=== PATIENT | female | born 1970 | race Caucasian/White ===

== ENCOUNTER → 2023-11-14 14:08 | Outpatient (REF) | payer OTHER, SELFPAY | LOC: WDC 14:08 | PROVIDERS: ATTENDING PHYSICIAN Family Medicine | DX: M85.80 Other specified disorders of bone density and structure, unspecified site (principal); Z12.31 Encounter for screening mammogram for malignant neoplasm of breast | CPT/HCPCS: 77063; 77067; 77080 ==

== ENCOUNTER → 2025-03-27 10:32 | Outpatient (REF) | payer OTHER, SELFPAY | LOC: RAD 10:32 | PROVIDERS: ATTENDING PHYSICIAN Family Medicine | DX: R07.89 Other chest pain (principal) | CPT/HCPCS: 71046 ==

== ENCOUNTER 2025-03-27 12:24 | Emergency (ER) | payer OTHER, SELFPAY ==
[2025-03-27 12:27] VITALS: BP 146/90
--- NOTE | 2025-03-27 13:25 | ED.GENMED ---
History of Present Illness
General
Chief Complaint: Chest Problem
Time Seen by Provider: 03/27/25 13:01
History of Present Illness
History of Present Illness:
55-year-old female with history of hypothyroidism presents to the emergency department for evaluation of chest pressure and shortness of breath that has been ongoing for the past several days. She reports exertional trouble breathing, is normally a
very active individual but feels short of breath whenever she walks even to the end of her driveway. The chest discomfort is not pleuritic but she does note that it involve the thoracic back on occasion. She also notes pain to the left groin that
began this morning and is intermittent. No fevers or chills, no coughing. Was sent for an outpatient chest x-ray this morning that returned negative. No history of coronary disease. Non-smoker. No recent surgeries or exogenous systemic estrogen
use
Past History
Past History
ED Past Medical History: Hypothyroidism
Social History
Tobacco: Non-smoker
Personal:
Review of Systems
Review of Systems
Allergies reviewed?: Yes
All Other Systems: ROS reviewed and negative except as documented in HPI and ROS
Phy Exam
Physical Exam
Physical Exam:
GEN: Well appearing, NAD, WDWN
HEENT: Oral mucosa moist, no scleral icterus
Cardiac: Regular rate and rhythm, no murmurs
Lung: No respiratory distress, no tachypnea, lungs clear to auscultation bilaterally
MSK: No gross deformity or injuries. No palpable inguinal adenopathy or tenderness, no lower extremity edema bilaterally
Skin: Good color, no pallor or jaundice, no rashes
Neuro: AO x3, moves all extremities freely
Psych: Calm, cooperative
Course
Orders/Labs/Results
Orders:
Orders
03/27/25 12:28
EKG [Electrocardiogram (*1)] Urgent
Reason for Study: Shortness of Breath
EKG- Treatment ONCE
03/27/25 13:59
Complete Blood Count/With Diff Urgent
Comprehensive Metabolic Panel Urgent
D-Dimer Urgent
NT-proBNP Urgent
Troponin I Urgent
03/27/25 14:51
COVID-19 Antigen Urgent
Source: Nasal Swab
Abnormal Lab Results
03/27/25
13:59
WBC 4.1 L 10^3/uL
(4.8-10.8)
MCH 31.2 H pg
(27.0-31.0)
Glucose 101 H mg/dl
(70-99)
03/27/25 13:59
03/27/25 13:59
Vital Signs
Initial and Last Documented VS:
Initial Vital Signs
Pulse Resp BP Pulse Ox
80 18 146/90 98
03/27/25 12:27 03/27/25 12:27 03/27/25 12:27 03/27/25 12:27
Last Documented Vital Signs
Pulse Resp BP Pulse Ox
71 22 146/90 100
03/27/25 14:45 03/27/25 14:45 03/27/25 12:27 03/27/25 14:45
MDM/Problems Addressed
MDM/Problems Addressed:
Patient is clinically well with an unremarkable workup. Negative D-dimer negative troponin and reassuring. She does have mild leukopenia which may suggest a viral trigger thus COVID-19 is sent prior to discharge. Given that this is negative will
refer to cardiology for outpatient workup although she does not have strong risk profile for coronary disease
Comment
Comment:
EKG independently interpreted by me shows a normal sinus rhythm at a rate of [address] changes concerning for ischemia
*Pulse Oximetry
SaO2: 98
Oxygen Mode of Delivery: Room air
Patient hypoxic: no
*Critical Care Note
Total Time (30-74mins, 75-104mins- exclusive of procedures): Not Applicable
ED Attending Note
-
Portions of this chart may have been created with voice recognition software.� Occasional wrong word or��sound alike� substitutions may have occurred due to the inherent limitations of voice recognition software.
Discharge Plan
Departure
Patient Disposition: Home (Routine Discharge)
Date of Disposition: 03/27/25
Time of Disposition: 14:42
Patient with high blood pressure during this ER visit?: Yes
Discharge Problem:
Dyspnea on exertion
Instructions: Chest Pain CBC Follow Up
Prescriptions:
No Action
levothyroxine [Synthroid] 100 MCG tablet
100 mcg PO DAILY
calcium carbonate [Calcium 500] 500 MG tablet,chewable
1 tab PO DAILY
ondansetron [Zofran ODT] 8 MG tablet,disintegrating
8 mg PO TID PRN (Reason: nausea/vomiting) Qty: 20 0RF
oxycodone 5 MG tablet
5 mg PO Q4HPRN PRN (Reason: pain) Qty: 10 0RF
psyllium husk [Metamucil Fiber (aspartame)] 1 PACKET powder in packet
1 packet PO DAILY Qty: 14 0RF
Referrals:
Silvino Rivera DO [Family Provider, Family Practice]
Interventions
Interventions:
*Risk Screen - Suicide Last Done: 03/27/25 14:02
*General Assessment Last Done: 03/27/25 14:02
*Neglect/Abuse Screening Last Done: 03/27/25 14:02
*ED- Fall Risk Assessment Last Done: 03/27/25 14:00
*ED COVID-19 Vaccine History Last Done: 03/27/25 14:00
*ED Influenza Vaccine History Last Done: 03/27/25 14:00
*Nursing Disposition Last Done: 03/27/25 14:55
ED- Cardiac Assessment Last Done: 03/27/25 14:01
ED- Pulmonary Assessment Last Done: 03/27/25 14:01
Discharge Date and Time
Discharge Date/Time: 03/27/25 14:55
Print Language: AMHARIC
[2025-03-27 13:59] VITALS: BMI 25.9
[2025-03-27 14:06] LABS: Hematocrit 39.7 % (37.0-47.0); Hemoglobin 13.2 g/dL (12.0-16.0); Mean Corp Hgb Conc. 33.2 g/dL (33.0-37.0); Mean Corpuscular Volume 93.9 fL (81.0-99.0); Nucleated Red Blood Cells % 0 %; Platelet Count 190 10^3/uL (130-400); Red Cell Dist. Width 13.2 % (11.5-14.5)
[2025-03-27 14:18] LABS: D-Dimer 0.49 ug/mlFEU (0.00-0.50)
[2025-03-27 14:20] LABS: ALT (SGPT) 29 U/L (0-35); AST (SGOT) 28 U/L (14-36); Albumin 4.4 g/dl (3.5-5.0); Alkaline Phosphatase 60 U/L (38-126); Blood Urea Nitrogen 13 mg/dl (7-17); Calcium 9.9 mg/dl (8.4-10.2); Carbon Dioxide 26 mmol/L (22-30); Chloride 107 mmol/L (98-107); Estimated Creatinine Clearance 76 ml/min; Glucose 101 mg/dl (70-99); Potassium 4.5 mmol/L (3.5-5.1); Sodium 137 mmol/L (135-145); Total Protein 7.4 g/dl (6.3-8.2); eGFR > 60.00
[2025-03-27 14:31] LABS: Troponin I < 0.012 ng/ml
[2025-03-27 15:15] LABS: COVID-19 Antigen Negative (Negative)
== END 2025-03-27 14:55 | disposition home or self-care (01) ==
LOC: EMR 12:24
PROVIDERS: Physician Assistant; EMERGENCY PHYSICIAN Emergency Medicine; FAMILY PHYSICIAN Family Medicine
DX: R06.02 Shortness of breath (principal); D72.819 Decreased white blood cell count, unspecified; E03.9 Hypothyroidism, unspecified
CPT/HCPCS: 99284; 80053; 83880; 84484; 85025; 85379; 87811; 93005

== ENCOUNTER → 2025-04-12 09:42 | Outpatient (REF) | payer OTHER, SELFPAY | LOC: RCS 09:42 | PROVIDERS: ATTENDING PHYSICIAN Internal Medicine Cardiovascular Disease; FAMILY PHYSICIAN Family Medicine | DX: R07.89 Other chest pain (principal) | CPT/HCPCS: 93017; 93320; 93325; 93350 ==